=== PATIENT | female | born 1990 | race Caucasian/White ===

== ENCOUNTER 2021-11-18 15:11 | Emergency (ER) | payer MEDICAID ==
[~2021-11-18] VITALS: Ht 157.5 cm; Wt 61.0 kg
[2021-11-18] MEDS ORDERED: KETOROLAC 30MG/ML VIAL IM ONE (15:45)
[2021-11-18] MEDS ORDERED: FLUT9.9S BOTHNSTRLS (17:14)
[2021-11-18 17:58] VITALS: BP 106/76
== END 2021-11-18 17:59 | disposition home or self-care (01) ==
LOC: ER 15:11
DX: R51.9 Headache, unspecified (principal); R09.81 Nasal congestion; Z86.16 Personal history of COVID-19
CPT/HCPCS: 81025; 96372; 99283; J1885